=== PATIENT | male | born 1950 | race Hispanic/Latino ===

== ENCOUNTER → 2017-08-21 | Outpatient (CLI) | payer OTHER ==
[~2017-08-21] MED LIST: ACET-2743 PO; ASPI-1012 PO; ATOR10 PO; CALC-854 PO; CELE200 PO; OXYC5 PO; PREG25 PO; TRAM50TA4 PO
== END | disposition home or self-care (01) ==
LOC: RAH 16:14
PROVIDERS: ATTEND Internal Medicine
DX: M47.896 Other spondylosis, lumbar region (principal); M48.07 Spinal stenosis, lumbosacral region
CPT/HCPCS: 72100

== ENCOUNTER → 2017-12-05 | Outpatient (CLI) | payer OTHER | END | disposition home or self-care (01) | LOC: OIH 10:31 | PROVIDERS: ATTEND Internal Medicine | DX: M47.895 Other spondylosis, thoracolumbar region (principal); J44.9 Chronic obstructive pulmonary disease, unspecified | CPT/HCPCS: 71046 ==

== ENCOUNTER → 2017-12-09 | Outpatient (CLI) | payer OTHER | END | disposition home or self-care (01) | LOC: RAH 09:38 | PROVIDERS: ATTEND Otolaryngology Plastic Surgery within the Head & Neck | DX: R13.10 Dysphagia, unspecified (principal); K21.9 Gastro-esophageal reflux disease without esophagitis | CPT/HCPCS: G8996; G8997; G8998; 74230; 92611 ==

== ENCOUNTER → 2018-01-07 | Outpatient (CLI) | payer OTHER | END | disposition home or self-care (01) | LOC: RESP 12:28 | PROVIDERS: ATTEND Internal Medicine | DX: J44.9 Chronic obstructive pulmonary disease, unspecified (principal); R06.02 Shortness of breath; R06.00 Dyspnea, unspecified; Z87.891 Personal history of nicotine dependence | CPT/HCPCS: 94060; 94727; 94729 ==

== ENCOUNTER → 2019-05-03 | Outpatient (CLI) | payer OTHER | END | disposition home or self-care (01) | LOC: OIH 16:27 | PROVIDERS: ATTEND Internal Medicine | DX: J44.9 Chronic obstructive pulmonary disease, unspecified (principal); M47.814 Spondylosis without myelopathy or radiculopathy, thoracic region | CPT/HCPCS: 71046 ==

== ENCOUNTER → 2019-11-02 | Outpatient (CLI) | payer OTHER | END | disposition home or self-care (01) | LOC: OIH 13:54 | PROVIDERS: ATTEND Internal Medicine | DX: M16.12 Unilateral primary osteoarthritis, left hip (principal); M25.752 Osteophyte, left hip | CPT/HCPCS: 73502 ==

== ENCOUNTER → 2020-05-01 | Outpatient (CLI) | payer MEDICARE | END | disposition home or self-care (01) | LOC: OIH 11:35 | PROVIDERS: ATTEND Internal Medicine | DX: R05 Cough (principal); I70.0 Atherosclerosis of aorta; M47.815 Spondylosis without myelopathy or radiculopathy, thoracolumbar region | CPT/HCPCS: 71046 ==

== ENCOUNTER → 2020-05-22 | Outpatient (CLI) | payer MEDICARE | END | disposition home or self-care (01) | LOC: OIH 12:41 | PROVIDERS: ATTEND Internal Medicine | DX: Z01.818 Encounter for other preprocedural examination (principal); R05 Cough; J44.9 Chronic obstructive pulmonary disease, unspecified | CPT/HCPCS: 71046 ==

== ENCOUNTER → 2022-10-23 | Outpatient (CLI) | payer MEDICARE ==
[2022-10-23 11:50] LABS: CREATININE 1.2 mg/dL (0.5-1.5)
== END | disposition home or self-care (01) ==
LOC: LAB 09:42
PROVIDERS: ATTEND Otolaryngology Plastic Surgery within the Head & Neck
DX: H90.3 Sensorineural hearing loss, bilateral (principal)
CPT/HCPCS: 36415; 82565; 84520

== ENCOUNTER → 2022-11-01 | Outpatient (CLI) | payer MEDICARE ==
[~2022-11-01] MED LIST changes: +GADOTERATE MEGLUMINE 10 MMOL/20 ML VIAL IV ONE
== END | disposition home or self-care (01) ==
LOC: RAH 10:22
PROVIDERS: ATTEND Otolaryngology Plastic Surgery within the Head & Neck
DX: H90.3 Sensorineural hearing loss, bilateral (principal)
CPT/HCPCS: 70553; A9575

== ENCOUNTER → 2023-06-26 | Outpatient (CLI) | payer MEDICARE ==
[~2023-06-26] MED LIST changes: -GADOTERATE MEGLUMINE 10 MMOL/20 ML VIAL IV ONE
[2023-06-26] MEDS: REGADENOSON 0.4 MG/5 ML PF SYG IVP SCH (14:29)
== END | disposition home or self-care (01) ==
LOC: RAH 08:32
PROVIDERS: ATTEND Internal Medicine
DX: I25.9 Chronic ischemic heart disease, unspecified (principal); I25.10 Atherosclerotic heart disease of native coronary artery without angina pectoris; I73.9 Peripheral vascular disease, unspecified; R01.1 Cardiac murmur, unspecified; R09.89 Other specified symptoms and signs involving the circulatory and respiratory systems
CPT/HCPCS: 78452; 96374; 93017; J2785; A9500 ×2

== ENCOUNTER → 2023-09-08 | Outpatient (CLI) | payer MEDICARE ==
[2023-09-08 12:29] LABS: CREATININE 1.1 mg/dL (0.5-1.3); POTASSIUM 4.7 mmol/L (3.5-5.1)
== END | disposition home or self-care (01) ==
LOC: LAB 08:58
PROVIDERS: ATTEND Student in an Organized Health Care Education/Training Program
DX: I25.10 Atherosclerotic heart disease of native coronary artery without angina pectoris (principal)
CPT/HCPCS: 36415; 80048

== ENCOUNTER → 2023-09-17 | Outpatient (CLI) | payer MEDICARE ==
[~2023-09-17] MED LIST changes: +IOHEXOL 350 MG/ML 100ML INFUS..BTL IV ONE
== END | disposition home or self-care (01) ==
LOC: RAH 09:02
PROVIDERS: ATTEND Student in an Organized Health Care Education/Training Program
DX: I25.10 Atherosclerotic heart disease of native coronary artery without angina pectoris (principal); R06.00 Dyspnea, unspecified; R93.1 Abnormal findings on diagnostic imaging of heart and coronary circulation; M47.815 Spondylosis without myelopathy or radiculopathy, thoracolumbar region
CPT/HCPCS: 75574; Q9967

== ENCOUNTER 2023-11-12 08:19 | Day surgery (SDC) | payer MEDICARE ==
[2023-11-11 10:16] LABS: BASOPHILS # (AUTO) 0.05 K/uL (0.00-0.20); BASOPHILS % (AUTO) 0.8 % (0.0-5.0); EOSINOPHILS # (AUTO) 0.25 K/uL (0.00-0.70); HEMATOCRIT 50.4 % (42-54); IMMATURE GRANULOCYTE ABSOLUTE 0.02 K/uL (0-1); LYMPHOCYTES # (AUTO) 1.5 K/uL (1.0-4.8); LYMPHOCYTES % (AUTO) 23.4 % (21.0-51.0); MEAN CORPUSCULAR HEMOGLOBIN 30.7 pg (27.0-33.0); MEAN CORPUSCULAR HGB CONC 32.5 g/dL (32.0-36.0); MEAN CORPUSCULAR VOLUME 94.4 fL (79-99); MONOCYTES # (AUTO) 0.6 K/uL (0.1-1.0); MONOCYTES % (AUTO) 8.9 % (3.0-13.0); NEUTROPHILS # (AUTO) 3.9 K/uL (1.8-7.7); NEUTROPHILS % (AUTO) 62.6 % (40.0-77.0); PLATELET COUNT (AUTO) 197 K/uL (130-400); RED BLOOD CELL COUNT(AUTO) 5.34 MIL/uL (4.50-6.20); RED CELL DISTRIBUTION WIDTH 14.4 % (11.0-15.5); WHITE BLOOD COUNT (AUTO) 6.3 K/uL (4.8-10.8)
[2023-11-11 10:25] LABS: CREATININE 1.1 mg/dL (0.5-1.3); POTASSIUM 4.7 mmol/L (3.5-5.1)
[2023-11-11 10:29] LABS: INR 1.05 (0.85-1.15); PROTHROMBIN TIME 11.3 SEC (9.6-11.6)
[2023-11-11 10:31] LABS: PARTIAL THROMBOPLASTIN TIME 29.8 SEC (26.3-35.5)
[2023-11-11 10:33] LABS: APPEARANCE,URINE CLEAR (CLEAR); BILIRUBIN,URINE NEGATIVE (NEGATIVE); COLOR,URINE YELLOW (YELLOW); GLUCOSE, URINE (UA) NEGATIVE (NEGATIVE); KETONES,URINE NEGATIVE (NEGATIVE); LEUKOCYTE ESTERASE ,URINE NEGATIVE Leu/uL (NEGATIVE); NITRATE,URINE NEGATIVE (NEGATIVE); OCCULT BLOOD,URINE NEGATIVE (NEGATIVE); PH,URINE 5.5 (5.0-8.0); PROTEIN,URINE NEGATIVE (NEGATIVE); UROBILINOGEN,URINE 0.2 mg/dL (0.2-1.0)
[2023-11-11 10:34] LABS: ADD UA MICROSCOPIC NO
[2023-11-11 10:41] LABS: B-TYPE NATRIURETIC PEPTIDE 26 pg/mL (0-100)
[2023-11-11 10:44] VITALS: BP 139/75; PULSE 52; RESP 16; TEMP 98
[~2023-11-12] VITALS: Ht 175.3 cm; Wt 84.9 kg
[2023-11-12] VITALS (15 sets, daily range): BP systolic 115–138; BP diastolic 59–80; PULSE 50–71; RESP 13–18; TEMP 97.6–98
[~2023-11-12 08:19] MED LIST changes: -ACET-2743 PO; -ASPI-1012 PO; -ATOR10 PO; +ATOR40TA71 PO; -CALC-854 PO; -CELE200 PO; +FLUT16H NASAL; +FLUT1BLS3 IH; -IOHEXOL 350 MG/ML 100ML INFUS..BTL IV ONE; +MELO-108 PO; -OXYC5 PO; -PREG25 PO; +TAMS-1 PO; -TRAM50TA4 PO
[2023-11-12] MEDS: 0.9%NACL 1000ML 1,000 ML IV ONE (09:08)
[2023-11-12] MEDS ORDERED: Solu-medROL 125MG VIAL IVP ONE (10:00)
[2023-11-12] MEDS: Solu-medROL 125MG VIAL IVP ONE (11:32)
[2023-11-12] MEDS: DiphenhydrAMINE HCL 50 MG/ML VIAL IV ONE (11:32)
[2023-11-12] MEDS ORDERED: LIDOCAINE HCL 400MG/20ML VIAL ONE (11:57)
[2023-11-12] MEDS ORDERED: HEParin 10,000 UNIT/10ML (1,000 UNIT/ML) VIAL ONE (11:58)
[2023-11-12] MEDS ORDERED: IOHEXOL 350 MG/ML 100ML INFUS..BTL IV ONE (11:58)
[2023-11-12] MEDS ORDERED: VERAPAMIL HCL 2.5 MG/ML VIAL ONE (11:58)
[2023-11-12] MEDS ORDERED: NITROGLYCERIN 50MG VIAL ONE (11:59)
[2023-11-12] MEDS ORDERED: HEParin-NS 1,000 UNIT/500 ML 1,000 ML IV ONE (11:59)
[2023-11-12] MEDS ORDERED: FENTanyl CITRate PF 50 MCG/1 ML 2ML VIAL ONE (12:00)
[2023-11-12] MEDS ORDERED: MIDAZOLAM HCL 1 MG/ML 2ML VIAL ONE ×2 (12:00→12:29)
[2023-11-12] MEDS ORDERED: GLUCAGON 1MG KIT 1 MG ML IM PRN (13:30)
[2023-11-12] MEDS ORDERED: DEXTROSE 50%-WATER 50 ML DISP.SYRIN IV PRN (13:30)
[2023-11-12] MEDS: 0.9%NACL 1000ML 1,000 ML IV SCH (13:30)
[2023-11-12] MEDS ORDERED: ASPI-1197 PO (16:17)
[2023-11-12] MEDS ORDERED: METO-408 PO (16:18)
== END 2023-11-12 17:40 | disposition home or self-care (01) ==
LOC: DAH 08:19
PROVIDERS: ATTEND Student in an Organized Health Care Education/Training Program
DX: I25.118 Atherosclerotic heart disease of native coronary artery with other forms of angina pectoris (principal); J44.9 Chronic obstructive pulmonary disease, unspecified; R06.02 Shortness of breath; E78.00 Pure hypercholesterolemia, unspecified; M19.90 Unspecified osteoarthritis, unspecified site; Z96.641 Presence of right artificial hip joint; Z79.82 Long term (current) use of aspirin; Z79.899 Other long term (current) drug therapy; Z98.890 Other specified postprocedural states
CPT/HCPCS: 80048; 83880; 85025; 85610; 85730; 81003; 36415; 71045; 93005; 93458; C1769; C1894; A4649; J1200; J3010; J3490 ×3; J7030; J2919; J1644 ×2; J2250 ×2; Q9967; A4215; A4222; A4221; A4663; A4216; A4606; Q9965; A4223 ×3; 99156; 99157

== ENCOUNTER 2023-12-12 07:52 | Day surgery (SDC) | payer MEDICARE ==
[2023-12-10 12:33] VITALS: BP 129/74; PULSE 55; RESP 16; TEMP 97.1
[2023-12-10 12:51] LABS: BASOPHILS # (AUTO) 0.06 K/uL (0.00-0.20); BASOPHILS % (AUTO) 0.8 % (0.0-5.0); EOSINOPHILS # (AUTO) 0.39 K/uL (0.00-0.70); HEMATOCRIT 46.3 % (42-54); IMMATURE GRANULOCYTE ABSOLUTE 0.02 K/uL (0-1); LYMPHOCYTES # (AUTO) 1.9 K/uL (1.0-4.8); LYMPHOCYTES % (AUTO) 23.9 % (21.0-51.0); MEAN CORPUSCULAR HEMOGLOBIN 30.3 pg (27.0-33.0); MEAN CORPUSCULAR VOLUME 94.9 fL (79-99); MONOCYTES # (AUTO) 0.8 K/uL (0.1-1.0); MONOCYTES % (AUTO) 10.4 % (3.0-13.0); NEUTROPHILS # (AUTO) 4.7 K/uL (1.8-7.7); NEUTROPHILS % (AUTO) 59.6 % (40.0-77.0); PLATELET COUNT (AUTO) 215 K/uL (130-400); RED BLOOD CELL COUNT(AUTO) 4.88 MIL/uL (4.50-6.20); RED CELL DISTRIBUTION WIDTH 14.1 % (11.0-15.5); WHITE BLOOD COUNT (AUTO) 7.9 K/uL (4.8-10.8)
[2023-12-10 13:00] LABS: CREATININE 1.1 mg/dL (0.5-1.3); POTASSIUM 4.7 mmol/L (3.5-5.1)
[2023-12-10 13:02] LABS: INR 1.04 (0.85-1.15); PROTHROMBIN TIME 11.2 SEC (9.6-11.6)
[2023-12-10 13:03] LABS: PARTIAL THROMBOPLASTIN TIME 27.7 SEC (26.3-35.5)
[2023-12-10 13:11] LABS: APPEARANCE,URINE CLEAR (CLEAR); BILIRUBIN,URINE NEGATIVE (NEGATIVE); COLOR,URINE YELLOW (YELLOW); GLUCOSE, URINE (UA) NEGATIVE (NEGATIVE); KETONES,URINE NEGATIVE (NEGATIVE); LEUKOCYTE ESTERASE ,URINE NEGATIVE Leu/uL (NEGATIVE); NITRATE,URINE NEGATIVE (NEGATIVE); OCCULT BLOOD,URINE NEGATIVE (NEGATIVE); PH,URINE 5.5 (5.0-8.0); PROTEIN,URINE NEGATIVE (NEGATIVE); UROBILINOGEN,URINE 0.2 mg/dL (0.2-1.0)
[2023-12-10 13:29] LABS: B-TYPE NATRIURETIC PEPTIDE 56 pg/mL (0-100)
[2023-12-10 13:31] LABS: ADD UA MICROSCOPIC NO
[2023-12-12] VITALS (13 sets, daily range): BP systolic 106–131; BP diastolic 57–74; PULSE 50–63; RESP 12–16; TEMP 97.8–98
[~2023-12-12] VITALS: Ht 175.3 cm; Wt 86.7 kg
[~2023-12-12 07:52] MED LIST changes: +ASPI-1197 PO; -MELO-108 PO; +METO-408 PO; +MONT-39 PO
[2023-12-12] MEDS: DiphenhydrAMINE HCL 25 MG CAPSULE PO ONE (08:05)
[2023-12-12] MEDS: 0.9%NACL 1000ML 1,000 ML IV ONE (08:38)
[2023-12-12] MEDS ORDERED: NITROGLYCERIN 50MG VIAL ONE (09:05)
[2023-12-12] MEDS ORDERED: HEParin-NS 1,000 UNIT/500 ML 1,000 ML IV ONE (09:05)
[2023-12-12] MEDS ORDERED: HEParin 10,000 UNIT/10ML (1,000 UNIT/ML) VIAL ONE (09:05)
[2023-12-12] MEDS ORDERED: VERAPAMIL HCL 2.5 MG/ML VIAL ONE (09:05)
[2023-12-12] MEDS ORDERED: LIDOCAINE HCL 400MG/20ML VIAL ONE (09:05)
[2023-12-12] MEDS ORDERED: IOHEXOL 350 MG/ML 100ML INFUS..BTL IV ONE ×3 (09:05→10:42)
[2023-12-12] MEDS ORDERED: FENTanyl CITRate PF 50 MCG/1 ML 2ML VIAL ONE (09:25)
[2023-12-12] MEDS ORDERED: MIDAZOLAM HCL 1 MG/ML 2ML VIAL ONE (09:26)
[2023-12-12] MEDS ORDERED: BIVALIRUDIN 250 MG/VIAL IV ONE (09:31)
[2023-12-12] MEDS ORDERED: cloPIDOgrel 300MG TAB ONE (09:33)
[2023-12-12] MEDS ORDERED: HEParin-NS 1,000 UNIT/500 ML 500 ML IV ONE ×2 (10:14→10:16)
[2023-12-12] MEDS ORDERED: DEXTROSE 50%-WATER 50 ML DISP.SYRIN IV PRN (12:00)
[2023-12-12] MEDS ORDERED: GLUCAGON 1MG KIT 1 MG ML IM PRN (12:00)
[2023-12-12] MEDS: 0.9%NACL 1000ML 1,000 ML IV SCH (12:00)
== END 2023-12-12 16:00 | disposition home or self-care (01) ==
LOC: DAH 07:52
PROVIDERS: ATTEND Student in an Organized Health Care Education/Training Program
DX: I25.118 Atherosclerotic heart disease of native coronary artery with other forms of angina pectoris (principal); I25.82 Chronic total occlusion of coronary artery; J44.9 Chronic obstructive pulmonary disease, unspecified; E78.00 Pure hypercholesterolemia, unspecified; M19.90 Unspecified osteoarthritis, unspecified site; R06.02 Shortness of breath; I25.2 Old myocardial infarction; Z86.73 Personal history of transient ischemic attack (TIA), and cerebral infarction without residual deficits; Z96.641 Presence of right artificial hip joint; Z79.82 Long term (current) use of aspirin; Z79.899 Other long term (current) drug therapy
CPT/HCPCS: 80048; 83880; 85025; 85610; 85730; 81003; 36415; 71045; 93005; 93454; Q0163; C1894 ×3; C1769 ×9; C1760; C1887 ×5; A4649; Q9965 ×4; J3010; J3490 ×3; J7030; J1644 ×4; J2250; Q9967 ×3; A4215; A4222; A4221; A4663; A4216; A4606; A4223 ×3; 99156; 99157; J0583